=== PATIENT | female | born 1965 | race Caucasian/White ===

== ENCOUNTER → 2018-09-01 | Outpatient (CLI) | payer OTHER ==
--- NOTE | 2018-09-01 17:46 | 2DMMODE ---
[place] [address] 2 D/M-MODE ECHOCARDIOGRAM Name: REA DOWD Room: [facility]#: [id number] Admission: 09/01/18 Attend Phys: Vito Dela Cruz MD Discharge: Date of : 67 Date of Service: 09/01/18 1746 Report #: [id number] THIS REPORT FOR: //name// APPROVED REPORT Study performed: 09/01/2018 13:59:39 EXAM: Comprehensive 2D, Doppler, and color-flow Echocardiogram Patient Location: Out-Patient BSA: 2.18 HR: 72 bpm BP: 120/70 mmHg Other Information Study Quality: Good Indications Palpitations 2D Dimensions IVSd: 12.47 (7-11mm) LVOT Diam: 20.47 (18-24mm) LVDd: 45.90 mm PWd: 11.42 (7-11mm) Ascending Ao: 27.98 (22-36mm) LVDs: 25.35 (25-40mm) Aortic Root: 27.37 mm Volumes Left Atrial Volume (Systole) LA ESV Index: 10.90 mL/m2 Aortic Valve AoV Peak Nicholas.: 1.00 m/s AO Peak Gr.: 3.97 mmHg LVOT Max P.25 mmHg AO Mean Gr.: 2.03 mmHg LVOT Mean P.58 mmHg LVOT Max V: 0.90 m/s AO V2 VTI: 18.66 cm LVOT Mean V: 0.58 m/s RICHELLE (VTI): 3.34 cm2 LVOT V1 VTI: 18.95 cm Mitral Valve E/A Ratio: 0.79 MV Decel. Time: 285.93 ms MV E Max Nicholas.: 0.48 m/s MV PHT: 82.92 ms MVA (PHT): 2.65 [place] [address] 2 D/M-MODE ECHOCARDIOGRAM Name: REA DOWD Room: [facility]#: [id number] Admission: 09/01/18 Attend Phys: Vito Dela Cruz MD Discharge: Date of : 67 Date of Service: 09/01/18 1746 Report #: [id number] TDI E/Lateral E': 6.86 E/Medial E': 6.86 Medial E' Nicholas.: 0.07 m/s Lateral E' Nicholas.: 0.07 m/s Pulmonary Valve PV Peak Nicholas.: 0.79 m/s PV Peak Gr.: 2.51 mmHg Tricuspid Valve RAP Estimate: 5.00 mmHg TR Peak Gr.: 20.67 mmHg RVSP: 25.67 mmHg PA Pressure: 25.67 mmHg Left Ventricle The left ventricle is normal size. There is normal LV segmental wall motion. Mild concentric left ventricular hypertrophy. Left ventricular systolic function is normal. The left ventricular ejection fraction is within the normal range. LVEF is 55-60%. Grade I - abnormal relaxation pattern. Right Ventricle The right ventricle is normal size. The right ventricular systolic function is normal. Atria The left atrium size is normal. The right atrium size is normal. Aortic Valve The aortic valve is normal in structure. No aortic regurgitation is present. There is no aortic valvular stenosis. Mitral Valve The mitral valve is normal in structure. There is no mitral valve regurgitation noted. No evidence of mitral valve stenosis. Tricuspid Valve The tricuspid valve is normal in structure. Mild tricuspid regurgitation. estimated pa pressure 30 mm Hg Pulmonic Valve The pulmonary valve is normal in structure. There is no pulmonic valvular regurgitation[place] [address] 2 D/M-MODE ECHOCARDIOGRAM Name: REA DOWD Room: [facility]#: [id number] Admission: 09/01/18 Attend Phys: Vito Dela Cruz MD Discharge: Date of : 67 Date of Service: 09/01/18 1746 Report #: [id number] The aortic root is normal in size. IVC is normal in size and collapses >50% with inspiration. Pericardium There is no pericardial effusion. <Conclusion> Mild concentric left ventricular hypertrophy. LVEF is 55-60%. <ELECTRONICALLY SIGNED> By: Vito Dela Cruz MD, FACC 09/01/18 [id number] Vito Dela Cruz MD, FACC /INF
== END ==
LOC: M.CRD 13:55
DX: I07.1 Rheumatic tricuspid insufficiency (principal)

== ENCOUNTER 2018-09-06 18:46 | Emergency (ER) | payer OTHER ==
[~2018-09-06] VITALS: Ht 175.3 cm; Wt 97.5 kg
[2018-09-06] MEDS ORDERED: ZYRTEC-D TABLE1 EAC1 PO (18:59)
[2018-09-06 19:51] VITALS: BP 147/89
== END 2018-09-06 19:53 | disposition home or self-care (01) ==
LOC: M.ERS 18:46
DX: M79.671 Pain in right foot (principal); Z98.890 Other specified postprocedural states